=== PATIENT | female | born 1940 | race Caucasian/White ===

== ENCOUNTER → 2018-01-11 | Outpatient (CLI) | payer MEDICARE, OTHER ==
--- NOTE | 2018-01-11 11:13 | KCIC ---
Bone mineral density study dated 01/11/2018. Indication: Postmenopausal screening. Findings: Lower lumbar spine: BMD (g/cm2): Total L1-L4.......... 1.137. . T-Score: Total L1-L4.................... 0.8. Z-Score: Total L1-L4 ................... 3.5. Left Hip: BMD (g/cm2): Total .......... 0.906. . T-Score: Total .................... -0.3. Z-Score: Total ................... 1.8. World Health Organization criteria for BMD interpretation classify patients as Normal (T-score at or above -1.0), Osteopenic (T-score between -1.0 and -2.5), or Osteoporotic (T-score at or below -2.5). Impression: According to the World Health Organization, bone mineral density values within the lower lumbar spine and left femoral neck are within the range of normal. Electronically signed by: Dave Modi MD (01/11/2018 11:11 AM) [id number]
== END | disposition home or self-care (01) ==
LOC: KCIC DEXA 10:17
PROVIDERS: ATTEND Physician Assistant Surgical
DX: Z13.820 Encounter for screening for osteoporosis (principal); Z78.0 Asymptomatic menopausal state
CPT/HCPCS: 77080